=== PATIENT | female | born 1940 | race Caucasian/White ===

== ENCOUNTER 2019-06-18 07:51 | Outpatient (CLI) | payer MEDICARE, BC ==
[~2019-06-18] VITALS: Ht 163.8 cm; Wt 57.6 kg
[2019-06-18] MEDS ORDERED: ASPIRIN 81M81 MG/TA2 PO (08:07)
[2019-06-18] MEDS ORDERED: NORVASC 5MG5 MG/TAB PO (08:07)
[2019-06-18] MEDS ORDERED: PEPCID 20MG TAB20 MG PO (08:08)
[2019-06-18] MEDS ORDERED: LASIX 20MG TABL20 MG PO (08:08)
[2019-06-18] MEDS ORDERED: PLAQUENIL 200M200 MG PO (08:09)
[2019-06-18] MEDS ORDERED: SYNTHROID0.1 MG/TAB PO (08:10)
[2019-06-18] MEDS ORDERED: ARAVA 20MG TABL20 MG PO (08:10)
[2019-06-18] MEDS ORDERED: LOPRESSOR100 MG PO (08:11)
[2019-06-18] MEDS ORDERED: PRINIVIL10 MG PO (08:11)
[2019-06-18] MEDS ORDERED: ZOCOR 20MG20 MG PO (08:12)
[2019-06-18 08:31] VITALS: BP 163/80; PULSE 83; TEMP 97.7
[2019-06-18 08:42] LABS: HEMOGLOBIN 11.3 g/dl (12.5-16.0); MEAN CELL VOLUME 100 fl (80.0-100.0); MEAN CORPUSCULAR HEMOGLOBIN 31 pg (27.0-31.0); MEAN CORPUSCULAR HGB CONC 31 g/dl (33.0-37.0); MEAN PLATELET VOLUME 9.4 fl (7.4-10.4); PLATELET COUNT 221 K/mm3 (130-400); RED BLOOD COUNT 3.61 M/mm3 (4.10-5.30); REDCELL DISTRIBUTION WIDTH-CV 14.4 % (11.5-14.5)
[2019-06-18 08:46] LABS: PROTHROMBIN TIME 11.2 SECONDS (9.7-12.8)
[2019-06-18 08:49] LABS: HEMATOCRIT 36.2 % (37.0-47.0)
[2019-06-18 08:57] LABS: CALCIUM 9.4 mg/dL (8.4-10.2); CREATININE, serum 1.81 (0.52-1.25); POTASSIUM 5.2 mmol/L (3.4-5.0)
[2019-06-18] MEDS ORDERED: ZEBETA10 MG PO (09:44)
[2019-06-18 09:45] VITALS: BP 157/82; PULSE 81
--- NOTE | 2019-06-18 09:45 | NUR ---
REPORT received from Mirlande PAIZ. Pt is awake and alert after HEIDI, she is p,w,d with reg and unlabored respirations, has no problem drinking water. wctm
[2019-06-18 10:00] VITALS: BP 152/83; PULSE 85
[2019-06-18 10:15] VITALS: BP 150/60; PULSE 84
[2019-06-18 10:30] VITALS: BP 159/76; PULSE 85
--- NOTE | 2019-06-18 10:45 | NUR ---
Pt is ready for discharge, she has eaten pudding with no problem, she has ambulated with cane to bathroom with steady gait, I have reviewed dc/fu/rx instructions with patient and , they deny questions at this time. 22g saline lock to rac was dc'd with cath intact, dressing was applied.
== END 2019-06-18 10:45 | disposition home or self-care (01) ==
LOC: COL.RAD 07:51
PROVIDERS: Internal Medicine Cardiovascular Disease
DX: I08.0 Rheumatic disorders of both mitral and aortic valves (principal); I70.0 Atherosclerosis of aorta; Z79.01 Long term (current) use of anticoagulants
CPT/HCPCS: J2704